=== PATIENT | male | born 1970 | race Two or more races ===

== ENCOUNTER 2018-01-01 07:21 | Emergency (ER) | payer MEDICAID ==
[~2018-01-01] VITALS: Ht 170.2 cm; Wt 84.0 kg
[2018-01-01 07:24] VITALS: BP 130/88
== END 2018-01-01 08:17 | disposition home or self-care (01) ==
LOC: ED 08:00
DX: S16.1XXA Strain of muscle, fascia and tendon at neck level, initial encounter (principal); J02.0 Streptococcal pharyngitis; X58.XXXA Exposure to other specified factors, initial encounter; Y93.89 Activity, other specified; Y92.89 Other specified places as the place of occurrence of the external cause; Y99.9 Unspecified external cause status
CPT/HCPCS: 99283

== ENCOUNTER 2018-01-11 07:43 | Emergency (ER) | payer MEDICAID ==
[~2018-01-11] VITALS: Ht 165.1 cm; Wt 84.9 kg
[2018-01-11] MEDS ORDERED: DIAZEPAM 5 MG TABLET ONE (08:36)
[2018-01-11] MEDS ORDERED: KETOROLAC 30 MG/1 ML ONE (08:36)
[2018-01-11] MEDS ORDERED: KETOROLAC 30 MG/1 ML IM ONE (09:00)
[2018-01-11] MEDS ORDERED: DIAZEPAM 5 MG TABLET PO ONE (09:00)
[2018-01-11 09:04] LABS: BASOPHILS # (AUTO) 0.01 x10^3/uL (0-0.1); BASOPHILS % (AUTO) 0 % (0-1); EOSINOPHILS # (AUTO) 0.08 x10^3/uL (0-0.4); EOSINOPHILS % (AUTO) 1 % (1-7); LYMPHOCYTES % (AUTO) 30 % (22-44); MD NO; MEAN CORPUSCULAR VOLUME 88.3 fL (81-97); MEAN PLATELET VOLUME 8.7 fL (7.4-10.4); MONOCYTES # (AUTO) 0.69 x10^3/uL (0.2-0.8); MONOCYTES % (AUTO) 11 % (2-9); NEUTROPHILS # (AUTO) 3.55 x10^3/uL (1.8-6.8); NEUTROPHILS % (AUTO) 57 % (42-75); PLATELET COUNT 245 x10^3/uL (130-400); RED BLOOD COUNT 5.29 x10^6/uL (4.38-5.82); RED CELL DISTRIBUTION WIDTH 12.9 % (9.4-14.8)
[2018-01-11 09:13] LABS: ALANINE AMINOTRANSFERASE 50 U/L (12-78); ALBUMIN 3.8 g/dL (3.4-5.0); ANION GAP 5 mmol/L (5-15); CALCIUM 7.9 mg/dL (8.5-10.1); CHLORIDE 109 mmol/L (98-107); CREATININE 0.71 mg/dL (0.7-1.3)
[2018-01-11 09:15] LABS: ALKALINE PHOSPHATASE 53 U/L (45-117); BILIRUBIN,TOTAL 0.6 mg/dL (0.2-1.0); TOTAL PROTEIN 7.2 g/dL (6.4-8.2)
[2018-01-11 10:34] VITALS: BP 130/81
== END 2018-01-11 10:58 | disposition home or self-care (01) ==
LOC: ED 08:14
DX: M51.16 Intervertebral disc disorders with radiculopathy, lumbar region (principal); F17.210 Nicotine dependence, cigarettes, uncomplicated
CPT/HCPCS: 36415; 72148; 80053; 85025; 96372; 99285; J1885

== ENCOUNTER → 2018-01-12 | Outpatient (CLI) | payer MEDICAID | END | disposition home or self-care (01) | LOC: RAD 08:22 | PROVIDERS: ATTEND Neurological Surgery | DX: M54.5 Low back pain (principal) | CPT/HCPCS: 72110 ==

== ENCOUNTER 2018-02-12 08:14 | Emergency (ER) | payer MEDICAID ==
[~2018-02-12] VITALS: Ht 165.1 cm; Wt 87.5 kg
[2018-02-12 08:18] VITALS: BP 127/80
== END 2018-02-12 09:49 | disposition home or self-care (01) ==
LOC: ED 08:43
DX: S16.1XXA Strain of muscle, fascia and tendon at neck level, initial encounter (principal); X58.XXXA Exposure to other specified factors, initial encounter; Y93.89 Activity, other specified; Y92.89 Other specified places as the place of occurrence of the external cause; Y99.9 Unspecified external cause status
CPT/HCPCS: 72050; 99284

== ENCOUNTER → 2018-02-19 | Outpatient (CLI) | payer MEDICAID | END | disposition home or self-care (01) | LOC: CFH 09:29 | PROVIDERS: ATTEND Neurological Surgery | DX: M48.02 Spinal stenosis, cervical region (principal); M25.511 Pain in right shoulder; M25.512 Pain in left shoulder | CPT/HCPCS: 72141 ==

== ENCOUNTER 2019-01-12 07:03 | Emergency (ER) | payer MEDICAID ==
[~2019-01-12] VITALS: Ht 165.1 cm; Wt 92.2 kg
[2019-01-12 07:07] VITALS: BP 131/86
--- NOTE | 2019-01-12 07:26 | NUR ---
48 Y/O MALE PRESENTS TO ED WITH C/O COUGH/CONGESTION X 4 DAYS. NO C/O FEVER, CP, SOB
--- NOTE | 2019-01-12 07:59 | NUR ---
Patient/Caregiver given discharge instructions and they have confirmed that they understand the instructions. Patient ambulatory with steady gait. PT LEFT WITH ALL PERSONAL BELONGINGS.
== END 2019-01-12 08:01 | disposition home or self-care (01) ==
LOC: ED 07:45
DX: J02.9 Acute pharyngitis, unspecified (principal)
CPT/HCPCS: 99281